=== PATIENT | female | born 1975 | race Caucasian/White ===

== ENCOUNTER 2017-07-12 12:29 | Emergency (ER) | payer SELFPAY ==
[2017-07-12 12:40] VITALS: BMI 22.1
--- NOTE | 2017-07-12 13:03 | PDOC ---
History of Present Illness - General History Source: Patient Exam Limitations: No Limitations - History of Present Illness Initial Comments: 07/12/17 13:16 The patient is a 42 year old female, with no significant past medical history who presents to the emergency department with fever, nausea, vomiting, and diarrhea for about 3-4 days. The patient reports having multiple episodes of diarrhea /vomiting. She denies recent chills, headache or dizziness. She denies recent constipation. She denies recent dysuria, frequency, urgency or hematuria. She denies recent chest pain or shortness of breath. LMP was . Allergies: NKA Past surgical history: None reported. Social history: Nonsmoker. Denies EtOH use and recreational drug use. <Aditya Jarquin - Last Filed: 07/12/17 13:21> <Konstantin Lao - Last Filed: 07/12/17 15:55> - General Chief Complaint: SIRS, Suspected/Possible Stated Complaint: FEVER Time Seen by Provider: 07/12/17 13:02 Past History <Aditya Jarquin - Last Filed: 07/12/17 13:21> - Suicide/Smoking/Psychosocial Hx Smoking History: Never smoked Hx Alcohol Use: Yes (SOCIAL) Drug/Substance Use Hx: No Substance Use Type: None <Konstantin Lao - Last Filed: 07/12/17 15:55> - Past Medical History Allergies/Adverse Reactions: Allergies Allergy/AdvReac Type Severity Reaction Status Date / Time No Known Allergies Allergy Verified 07/12/17 12:40 Home Medications: Ambulatory Orders Dicyclomine HCl [Bentyl -] 20 mg PO Q8H #21 tablet 07/12/17 Ondansetron [Zofran *Odt*] 8 mg SL TID #30 od.tablet 07/12/17 Review of Systems - Review of Systems Able to Perform ROS?: Yes Comments:: 07/12/17 13:16 GENERAL/CONSTITUTIONAL: +fever No chills. No weakness. +body aches. HEAD, EYES, EARS, NOSE AND THROAT: No change in vision. No ear pain or discharge. No sore throat. CARDIOVASCULAR: No chest pain or shortness of breath. RESPIRATORY: No cough, wheezing, or hemoptysis. GASTROINTESTINAL: +nausea, vomiting, diarrhea No: constipation. GENITOURINARY: No dysuria, frequency, or change in urination. MUSCULOSKELETAL: No joint or muscle swelling or pain. No neck or back pain. SKIN: No rash NEUROLOGIC: No headache, vertigo, loss of consciousness, or change in strength/ sensation. ENDOCRINE: No increased thirst. No abnormal weight change. HEMATOLOGIC/LYMPHATIC: No anemia, easy bleeding, or history of blood clots. ALLERGIC/IMMUNOLOGIC: No hives or skin allergy. <Aditya Jarquin - Last Filed: 07/12/17 13:21> *Physical Exam - Vital Signs Last Vital Signs Temp Pulse Resp BP Pulse Ox 101.5 F H 87 20 111/73 100 07/12/17 12:37 07/12/17 12:37 07/12/17 12:37 07/12/17 12:37 07/12/17 12:37 - Physical Exam Comments: 07/12/17 13:21 GENERAL: Awake, alert, and fully oriented, in no acute distress HEAD: No signs of trauma EYES: PERRLA, EOMI, sclera anicteric, conjunctiva clear ENT: Auricles normal inspection, hearing grossly normal, nares patent, oropharynx clear without exudates. Moist mucosa NECK: Normal ROM, supple, no lymphadenopathy, JVD, or masses LUNGS: Breath sounds equal, clear to auscultation bilaterally. No wheezes, and no crackles HEART: Regular rate and rhythm, normal S1 and S2, no murmurs, rubs or gallops ABDOMEN: Soft, nontender, normoactive bowel sounds. No guarding, no rebound. No masses EXTREMITIES: Normal range of motion, no edema. No clubbing or cyanosis. No cords, erythema, or tenderness NEUROLOGICAL: Cranial nerves II through XII grossly intact. Normal speech, normal gait SKIN: Warm, Dry, normal turgor, no rashes or lesions noted. <Aditya Jarquin - Last Filed: 07/12/17 13:21> - Vital Signs Last Vital Signs Temp Pulse Resp BP Pulse Ox 101.5 F H 87 20 111/73 100 07/12/17 12:37 07/12/17 12:37 07/12/17 12:37 07/12/17 12:37 07/12/17 12:37 <Konstantin Lao - Last Filed: 07/12/17 15:55> ED Treatment Course - LABORATORY CBC & Chemistry Diagram: 07/12/17 13:30 07/12/17 13:30 <Konstantin Lao - Last Filed: 07/12/17 15:55> *DC/Admit/Observation/Transfer <CocoStephanieSheboy[place]Aditya - Last Filed: 07/12/17 13:21> - Discharge Dispostion Admit: No - Attestations Physician Attestion: 07/12/17 13:03 I, Dr. Konstantin Lao, attest that this document has been prepared under my direction and personally reviewed by me in its entirety. I further attest, that it accurately reflects all work, treatment, procedures and medical decision -making performed by me. <Konstantin Lao - Last Filed: 07/12/17 15:55> Diagnosis at time of Disposition: Viral syndrome - Discharge Dispostion Disposition: HOME Condition at time of disposition: Good - Prescriptions Prescriptions: Dicyclomine HCl [Bentyl -] 20 mg PO Q8H #21 tablet Ondansetron [Zofran *Odt*] 8 mg SL TID #30 od.tablet - Patient Instructions Additional Instructions: Juan José Mathew that you are ill. All your labs look good, but you were a little dehydrated. Use the Zofran for nausea and the bentyl for crampy pain. Drink plenty of fluids. Return to us if worse, see your doctor later this week. Best- Dr. Konstantin Lao
[2017-07-12] MEDS ORDERED: ACETAMINOPHEN 1000 MG/100 ML VIAL (NON FORMULARY) IVPB ONE (13:23)
[2017-07-12] MEDS ORDERED: ONDANSETRON 4 MG/2 ML VIAL IVPB ONE (13:23)
[2017-07-12] MEDS ORDERED: SODIUM CHLORIDE 2,000 ML IV STA (13:24)
[2017-07-12] MEDS ORDERED: ONDANSETRON 4 MG/2 ML VIAL ONE (13:46)
[2017-07-12] MEDS ORDERED: ACETAMINOPHEN INJECTION 100 ML IVPB ONE (13:46)
[2017-07-12 13:47] LABS: BASOPHIL 0.8 % (0-2.0); EOSINOPHIL 0.7 % (0-4.5); MCH 26.4 pg (25.7-33.7); MCHC 33.2 g/dl (32.0-36.0); MEAN CELL VOLUME 79.6 fl (80-96); MEAN PLT VOLUME 7.5 fl (7.5-11.1); NEUTROPHILS 76.5 % (42.8-82.8); PLATELET COUNT 240 K/MM3 (134-434); RDW 16.7 % (11.6-15.6); WHITE BLOOD COUNT 6.3 K/mm3 (4.0-10.0)
[2017-07-12 13:49] LABS: URINE APPEARANCE CLEAR; URINE BILIRUBIN NEGATIVE (NEGATIVE); URINE BLOOD NEGATIVE (NEGATIVE); URINE COLOR YELLOW; URINE GLUCOSE (UA) NEGATIVE (NEGATIVE); URINE KETONE NEGATIVE (NEGATIVE); URINE LEUK ESTERASE NEGATIVE (NEGATIVE); URINE NITRITE NEGATIVE (NEGATIVE); URINE PROTEIN 1+ (NEGATIVE)
[2017-07-12 13:51] LABS: URINE MUCUS RARE; URINE RBC 1 /hpf (0-3); URINE WBC 1 /hpf (3-5)
[2017-07-12 14:08] LABS: INR 1.23 (0.82-1.09); PROTHROMBIN TIME (PATIENT) 13.6 SEC (9.98-11.88)
[2017-07-12 14:14] LABS: ALBUMIN 3.6 g/dl (3.4-5.0); ANION GAP 10 (8-16); BILIRUBIN,TOTAL 0.5 mg/dL (0.2-1.0); CALCIUM 8.5 mg/dL (8.5-10.1); CO2 25 mmol/L (21-32); CREATININE 0.7 mg/dL (0.55-1.02); GLUCOSE,RANDOM 83 mg/dL (74-106); SGOT/AST 34 U/L (15-37); SGPT/ALT 37 U/L (12-78)
[2017-07-12 14:15] LABS: ALK PHOS 83 U/L (45-117); TOT PROT 6.8 g/dl (6.4-8.2)
[2017-07-12 14:48] VITALS: BP 116/72
[2017-07-12 16:42] VITALS: PULSE 99; TEMP 98.9
== END 2017-07-12 16:45 | disposition home or self-care (01) ==
LOC: JER 12:29
PROC: 3E033NZ Introduction of Analgesics, Hypnotics, Sedatives into Peripheral Vein, Percutaneous Approach (ICD-10-PCS; principal; 2017-07-12)
PROC: 3E033GC Introduction of Other Therapeutic Substance into Peripheral Vein, Percutaneous Approach (ICD-10-PCS; 2017-07-12)
PROC: 3E0337Z Introduction of Electrolytic and Water Balance Substance into Peripheral Vein, Percutaneous Approach (ICD-10-PCS; 2017-07-12)
DX: B34.9 Viral infection, unspecified (principal)
CPT/HCPCS: 36415; 80053; 81003; 81015; 83690; 84703; 85025; 85610; 99282-25